=== PATIENT | male | born 1995 | race American Indian/Alaskan Native ===

== ENCOUNTER 2018-04-15 22:37 | Emergency (ER) | payer SELFPAY ==
[2018-04-16] MEDS ORDERED: TRIPLE ANTIBIOTIC TP ONE (01:32)
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
[2018-04-16] MEDS ORDERED: MOTRIN PO ONE (01:35)
[2018-04-16 02:38] VITALS: BP 114/79
== END 2018-04-16 02:37 | disposition home or self-care (01) ==
LOC: ED 22:37
DX: S20.412A Abrasion of left back wall of thorax, initial encounter (principal); S50.812A Abrasion of left forearm, initial encounter; S80.212A Abrasion, left knee, initial encounter; S60.312A Abrasion of left thumb, initial encounter; F17.200 Nicotine dependence, unspecified, uncomplicated; F12.10 Cannabis abuse, uncomplicated; Z88.1 Allergy status to other antibiotic agents; Y09 Assault by unspecified means; Y93.89 Activity, other specified; Y92.89 Other specified places as the place of occurrence of the external cause; Y99.8 Other external cause status
CPT/HCPCS: 99283; A6250